=== PATIENT | female | born 1955 | race Caucasian/White ===

== ENCOUNTER 2018-06-03 07:07 | Day surgery (SDC) | payer MEDICAID, OTHER ==
[2018-06-03] VITALS (15 sets, daily range): BP systolic 87–144; BP diastolic 56–79; PULSE 62–92; RESP 11–18; Ht 160 cm; Wt 64.3 kg
[~2018-06-03] VITALS: Ht 160 cm; Wt 64.3 kg
[2018-06-03] MEDS ORDERED: IBUP-1545 PO (08:20)
[2018-06-03] MEDS ORDERED: LACTATED RINGER'S 1,000 ML IV SCH (08:30)
[2018-06-03] MEDS ORDERED: POLYMYXIN/BACITRACIN 1L IRRIG ONE (10:16)
[2018-06-03] MEDS ORDERED: ROPIVACAINE 0.5 % 30 ML VIAL ONE (10:16)
--- NOTE | 2018-06-03 10:16 | HPN ---
Date/Time of Note Date/Time of Note DATE: 06/03/18 TIME: 10:16 Interval H&P Admission Note Pt. seen H&P reviewed: No system changes MAURO CARBONE MD Jun 03, 2018 10:16
[2018-06-03] MEDS ORDERED: NEOMYC/POLYMYX/BACIT 30 GM OINT ONE (10:21)
--- NOTE | 2018-06-03 10:25 | PREAC ---
Date/Time of Note Date/Time of Note DATE: 06/03/18 TIME: 10:22 Anesthesia Eval and Record Evaluation Time Pre-Procedure Interview DATE: 06/03/18 TIME: 10:22 Age 62 Sex female NPO: 8 hrs Preoperative diagnosis right knee mesial and lateral meniscal tear Planned procedure Right knee arthroscopy with partial medial and lateral menisectomy, chondroplasty, application of Platelet Rich Plasma Past Medical History Past Medical History: None Surgery & Anesthesia Issues No known issue Meds Anticoagulation: No Beta Nayana within 24 hr: No Reason Beta Nayana not given: Pt. not on B-Nayana Reported Medications Ibuprofen* (Ibuprofen*) 800 Mg Tab, 800 MG PO TID, TAB 06/03/18 Current Medications Lactated Ringer's 1,000 ml @ 30 mls/hr Q24H IV Last administered on 06/03/18at 08:18; Admin Dose 30 MLS/HR; Start 06/03/18 at 08:30 Morphine Sulfate (morphine) 2 mg Q1H PRN IV pain; Start 06/03/18 at 10:30 Ketorolac Tromethamine (Toradol) 30 mg ONCE IV ; Start 06/03/18 at 10:30; Stop 06/06/18 at 10:29 Meds reviewed: Yes Allergies Coded Allergies: No Known Drug Allergies (Verified Allergy, Unknown, 06/03/18) Allergies Reviewed: Yes Labs/Studies Labs Reviewed: Reviewed by anesthesiologist test: N/A Pre-procedure Exam Last vitals Vital Signs Date Temp Pulse Resp B/P (MAP) Pulse Ox O2 O2 Flow FiO2 Time Delivery Rate 06/03/18 98.1 62 16 117/67 100 Room Air 08:01 (84) Airway: Adequate mouth opening, Adequate thyromental dist Mallampati: Mallampati II Teeth: Normal (upper denture/fake teeth) Lung: Normal Heart: Normal ASA Physical Status ASA physical status: 1 Emergency: None Planned Anesthetic General/MAC: LMA Planned Pain Management Parenteral pain med, Local by surgeon Pre-operative Attestations Prior to commencing anesthesia and surgery, the patient was re-evaluated, there was verification of: *The patient's identity *The results of appropriate recent lab work and preoperative vital signs *The above evaluation not changing prior to induction *Anesthetic plan, risk benefits, alternative and complications discussed with patient/family; questions answered; patient/family understands, accepts and wishes to proceed. DAVID FERNANDEZ. SPECIAL TAX AUDITOR Jun 03, 2018 10:25
[2018-06-03] MEDS ORDERED: LIDOCAINE 1% (MPF) 30 ML INJ ONE (10:27)
[2018-06-03] MEDS ORDERED: morphine 2 MG INJ IV PRN (10:30)
[2018-06-03] MEDS ORDERED: KETOROLAC 30 MG INJ IV SCH (10:30)
[2018-06-03] MEDS ORDERED: FENTAnyl 50 MCG/ML VIAL ONE (10:39)
[2018-06-03] MEDS ORDERED: PROPOFOL 20 ML ONE (11:02)
[2018-06-03] MEDS ORDERED: LIDOCAINE 2% (SDV) 5 ML INJ ONE (11:02)
[2018-06-03] MEDS ORDERED: CEFAZOLIN 1 GM INJ ONE (11:02)
[2018-06-03] MEDS ORDERED: FAMOTIDINE 20 MG INJ ONE (11:07)
[2018-06-03] MEDS ORDERED: ONDANSETRON 4 MG INJ ONE (11:07)
[2018-06-03] MEDS ORDERED: DEXAMETHASONE 4 MG/ML 5 ML INJ ONE (11:07)
[2018-06-03] MEDS ORDERED: GLYCOPYRROLATE 0.4 MG INJ ONE (11:08)
[2018-06-03] MEDS ORDERED: KETOROLAC 30 MG INJ ONE (11:28)
--- NOTE | 2018-06-03 11:49 | PAC ---
Date/Time of Note Date/Time of Note DATE: 06/03/18 TIME: 11:48 Post-Anesthesia Notes Post-Anesthesia Note Last documented vital signs Vital Signs Date Temp Pulse Resp B/P (MAP) Pulse Ox O2 O2 Flow FiO2 Time Delivery Rate 06/03/18 98.1 62 16 117/67 100 Room Air 08:01 (84) Activity: WNL Respiratory function: WNL Cardiovascular function: WNL Mental status: Baseline Pain reasonably controlled: Yes Hydration appropriate: Yes Nausea/Vomiting absent: Yes Comments BP 87/56 Spo2 100% HR 91 RR 12 T 99.3F DAVID FERNANDEZ RN BIRTHING Jun 03, 2018 11:49
[2018-06-03] MEDS ORDERED: FENTAnyl 50 MCG/ML VIAL IV PRN (12:00)
[2018-06-03] MEDS ORDERED: HYDROmorphONE 1 MG/5 ML IV SYRINGE IV PRN ×3 (12:00)
[2018-06-03] MEDS ORDERED: ONDANSETRON 4 MG INJ IV PRN (12:00)
--- NOTE | 2018-06-03 12:17 | OPR ---
Date/Time of Note Date/Time of Note DATE: 06/03/18 TIME: 12:11 Operative Report Procedure Date: Jun 03, 2018 Preoperative Diagnosis Right knee medial and lateral meniscal tear Postoperative Diagnosis Right knee medial and lateral meniscal tear Operation/Procedure Performed Right knee arthroscopy with partial medial and lateral meniscectomy and chondroplasty with application of PRP Surgeon Mauro Carbone MD Religious Education Coordinator none Anesthesia Type: general Anesthesiologist: DAVID FERNANDEZ CRNA Tourniquet Time: 18 min at 250 mm Hg Estimated Blood Loss: minimal Transfusion none Specimen none Grafts/Implants Arthrex Matias PRP at 2% hct Complications none Pt Condition Post Procedure: stable Disposition: PACU Indications INDICATIONS: Patient is a 62-year-old female with ongoing Right knee pain. The patient has complained of having catching, clicking and locking symptoms over the medial aspect of the knee with no relief with physical therapy or anti- inflammatory. Patient has decided to proceed with surgery. RISK NOTE: Patient was explained the risks and benefits of the surgery in the patients [place] language, including not limited to infection, bleeding, loss of limb, loss of life, need for future surgery, risk of anesthesia, risk of injury to the blood vessels and nerves, ligaments or tendons, and risk of deep vein thrombosis. Patient understood these risks and wished to proceed with the surgery. Procedure Description The correct operative site was noted and marked in the preoperative holding area. The patient was then brought back into the operative theater, placed supine on the operative table. Right knee was examined under anesthesia. Range of motion was 0-120. There is no varus or valgus or anterior or posterior instability. There is crepitus noticed at the patellofemoral joint. Tourniquet was then placed on the operative extremity thigh non-sterilely. Patient was then given preoperative antibiotics and then prepped and draped in normal sterile fashion. A timeout was taken and all parties in the room agreed it was the correct patient, correct extremity and correct procedure. Standard anterior lateral portal was created and the knee joint was entered with a blunt tipped trocar, followed by 30 arthroscope. Inflow was achieved with a pump and the pressure maintained at approximately 50 mmHg. A routine arthroscopic surgery was performed. Suprapatella pouch was unremarkable. 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 There were no loose bodies seen. There is an inflamed hypertrophic plica noted in the anterior and superior medial aspect of the knee. The popliteus hiatus was entered and was normal. Lateral compartment was entered and grade 1 chondromalacia was seen on the lateral tibial plateau and femoral condyle. Scope was then brought into the intercondylar notch and an anteromedial portal was made. Shaver was brought into the knee and small amount of fat pad and scar tissue was initially gently debrided. The anterior cruciate ligament was intact and probed. The knee was brought into a valgus position and the medial compartment was entered. The articular surface of the medial femoral condyle and medial tibial plateau revealed diffuse grade 3 chondromalacia. There was a degenerative posterior horn medial meniscus tear extending to the midbody that was associated with a radial tear that visualized and debrided gently with a motorized shaver and basket forceps, the posterior horn demonstrated a degenerative tear and fibrillation pattern. The motorized shaver and basket biters were used to smooth the remaining meniscal rim, with care to maintain the peripheral meniscal rim. A probe was introduced and this was carefully probed and was found to be stable. Chondroplasty was then carried out along the weightbearing aspect of the medial femoral condyle, medial tibial plateau, taking care to remove only loose articular cartilage debris and preserve functional articular cartilage. The lateral compartment was reentered and the loose chondral debris was debrided with motorized shaver. There was a degenerative posterior horn lateral meniscus tear extending to the midbody that demonstrated a degenerative tear and fibrillation pattern. The motorized shaver and basket biters were used to smooth the remaining meniscal rim, with care to maintain the peripheral meniscal rim. A probe was introduced and this was carefully probed and was found to be stable. Chondroplasty was then carried out along the weightbearing aspect of the lateral femoral condyle, lateral tibial plateau, taking care to remove only loose articular cartilage debris and preserve functional articular cartilage. Attention was then directed back to the patella femoral joint and a chondroplasty was carried out along the weightbearing aspect of the trochlea and undersurface of the patella to again remove loose debris and maintain functional active articular cartilage. The knee was then irrigated with additional 2 L of lactated Ringers solution. Excess fluid was then drained. Range of motion was then attempted showing 0- 125 degrees of motion The portal sites were closed with 4-0 Monocryl and Steri-Strips and dressed with Xeroform and triple antibiotic ointment. The knee was then injected with 20 cc of 0.5% plain ropivacaine followed by pl atelet rich plasma spun a 2% hematocrit. A platelet poor plasma soaked sterile dressing was then applied, followed by a compressive bulky soft bandage and an IVORY Wrap. At the completion of the surgery patient had palpable pulses, soft arms and brisk cap refill. The patient tolerated the procedure well and was taken to the PACU without any complications. All sponge and needle counts were correct. Patient will begin pain medicine and 48 hours of antibiotics as well as aspirin 81 mg for the duration of 4 weeks postoperatively MAURO CARBONE MD Jun 03, 2018 12:17
[2018-06-03] MEDS ORDERED: OXYCODONE/ACETAMINOPHEN (10/325) TAB PO ONE (14:00)
== END 2018-06-03 14:00 | disposition home or self-care (01) ==
LOC: SDS 07:07
PROVIDERS: ATTEND Orthopaedic Surgery
DX: M23.221 Derangement of posterior horn of medial meniscus due to old tear or injury, right knee (principal); M23.251 Derangement of posterior horn of lateral meniscus due to old tear or injury, right knee; M94.261 Chondromalacia, right knee
CPT/HCPCS: 29880; 82306; J0690; J1100; J1885; J2405; J2795; J3010; Z7512; Z7610